=== PATIENT | female | born 2000 | race Caucasian/White ===

== ENCOUNTER 2020-03-16 08:42 | Emergency (ER) | payer OTHER ==
[~2020-03-16] VITALS: Ht 167.6 cm; Wt 77.3 kg
[2020-03-16 08:48] VITALS: BP 121/75; TEMP 98
[2020-03-16] MEDS ORDERED: BIRTH CONTROL (08:57)
[2020-03-16] MEDS ORDERED: PREDNISONE20 MG PO (10:33)
[2020-03-16 10:35] VITALS: PULSE 85
== END 2020-03-16 10:35 | disposition home or self-care (01) ==
LOC: COL.ER 08:42
DX: J06.9 Acute upper respiratory infection, unspecified (principal); U07.1 COVID-19; Z79.2 Long term (current) use of antibiotics